=== PATIENT | male | born 1980 | race Caucasian/White ===

== ENCOUNTER 2017-02-21 10:25 | Emergency (ER) | payer OTHER ==
[2017-02-21 10:26] VITALS: BMI 50.0
[2017-02-21 11:02] VITALS: O2SAT 97
[2017-02-21 11:59] LABS: BASO # 0.1 K/uL (0.0-0.2); BASO % 1.1 % (0.0-2.0); EOS # 0.3 K/uL (0.0-0.7); HEMATOCRIT 43.5 % (35.0-51.0); LYMPH # 2.2 K/uL (1.0-4.3); LYMPH % 25.4 % (20.0-40.0); MEAN CELL VOLUME 80.4 fL (80.0-94.0); MEAN CORPUSCULAR HEMOGLOBIN 27.8 pg (27.0-31.0); MEAN CORPUSCULAR HGB CONC 34.5 g/dL (33.0-37.0); MEAN PLATELET VOLUME 8.8 fL (7.2-11.7); MONO # 0.6 K/uL (0.0-0.8); MONO % 7.3 % (0.0-10.0); RED CELL DISTRIBUTION WIDTH 13.7 % (11.5-14.5); WHITE BLOOD COUNT 8.7 K/uL (4.8-10.8)
--- NOTE | 2017-02-21 12:00 | C.PDOC ---
History Of Present Illness Patient is a 37 y/o male, whose PMHx includes HTN, presents to the ED for evaluation of LLQ abdominal pain since yesterday and headache since this morning. Denies having similar symptoms in the past. Otherwise, denies any chest pain, shortness of breath, dizziness, weakness, numbness, fever, chills, nausea, vomiting, diarrhea, changes in bowel habits, dysuria, hematuria, frequency, or flank pain. Time Seen by Provider: 02/21/17 11:42 Chief Complaint (Nursing): Abdominal Pain History Per: Patient History/Exam Limitations: no limitations Onset/Duration Of Symptoms: Days (1) Current Symptoms Are (Timing): Still Present Severity: Moderate Location Of Pain/Discomfort: LLQ Radiation Of Pain To:: None Quality Of Discomfort: "Pain" Associated Symptoms: denies: Fever, Chills, Nausea, Vomiting, Diarrhea, Loss Of Appetite, Back Pain, Chest Pain, Constipation, Urinary Symptoms Exacerbating Factors: None Alleviating Factors: None Recent travel outside of the [place]: No Additional History Per: Patient Past Medical History Reviewed: Historical Data, Nursing Documentation, Vital Signs Vital Signs: Last Vital Signs Temp 97.8 F 02/21/17 16:11 Pulse 76 02/21/17 16:11 Resp 18 02/21/17 16:11 BP 153/110 H 02/21/17 16:11 Pulse Ox 97 02/21/17 16:11 - Medical History PMH: Anxiety, Back Problems, Bipolar Disorder, HTN, Hypercholesterolemia Family History: States: Unknown Family Hx, Diabetes (Father) Denies: [place] (no family history of sudden or early cardiac disease) - Social History Hx Tobacco Use: No Hx Alcohol Use: No Hx Substance Use: No - Immunization History Hx Tetanus Toxoid Vaccination: Yes Hx Influenza Vaccination: Yes (05/2016) Hx Pneumococcal Vaccination: No Review Of Systems Except As Marked, All Systems Reviewed And Found Negative. Constitutional: Negative for: Fever, Chills Eyes: Negative for: Vision Change Cardiovascular: Negative for: Chest Pain, Palpitations Respiratory: Negative for: Shortness of Breath Gastrointestinal: Positive for: Abdominal Pain. Negative for: Nausea, Vomiting , Diarrhea, Constipation Genitourinary: Negative for: Dysuria, Frequency, Incontinence, Hematuria Musculoskeletal: Negative for: Back Pain Neurological: Positive for: Headache. Negative for: Weakness, Numbness, Dizziness Physical Exam - Physical Exam Appears: Non-toxic, No Acute Distress Skin: Normal Color, Warm, Dry Head: Atraumatic, Normacephalic Eye(s): bilateral: Normal Inspection Oral Mucosa: Moist Neck: Normal ROM, Supple Cardiovascular: Rhythm Regular, No Murmur Respiratory: Normal Breath Sounds, No Rales, No Rhonchi, No Wheezing Gastrointestinal/Abdominal: Soft, Tenderness (LLQ), No Distention, No Guarding, No Rebound Back: Normal Inspection Extremity: Bilateral: Atraumatic, Normal ROM Neurological/Psych: Oriented x3, Normal Speech, Normal Cognition, No Other (no focal deficits) ED Course And Treatment - Laboratory Results Result Diagrams: 02/21/17 11:51 02/21/17 11:51 O2 Sat by Pulse Oximetry: 97 (RA) Pulse Ox Interpretation: Normal - CT Scan/US Head CT Other Rad Studies (CT/US): Read By Radiologist, Radiology Report Reviewed CT/US Interpretation: PROCEDURE: CT HEAD WITHOUT CONTRAST. HISTORY: severe headache x 1 day. COMPARISON: Noncontrast head CT performed 08/08/15. TECHNIQUE: Axial computed tomography images were obtained through the head/ brain without intravenous contrast. Radiation dose: Total exam DLP = 981.84 mGy-cm. This CT exam was performed using one or more of the following dose reduction techniques: Automated exposure control, adjustment of the mA and/or kV according to patient size, and/or use of iterative reconstruction technique. FINDINGS: HEMORRHAGE: No intracranial hemorrhage. BRAIN: No mass effect or edema. Nonspecific 4 mm calcification re-identified, left frontal lobe parenchyma. No atrophy or chronic microvascular ischemic changes.Please note that MRI with diffusion imaging is more sensitive in the detection of acute ischemic event. VENTRICLES: Cavum septum pellucidum, anatomic variant. No hydrocephalus. CALVARIUM: Unremarkable. PARANASAL SINUSES: Unremarkable as visualized. No significant inflammatory changes. MASTOID AIR CELLS: Unremarkable as visualized. No inflammatory changes. OTHER FINDINGS: None. IMPRESSION: No acute intracranial pathology identified. Abd & pelvis CT Other Rad Studies (CT/US): Read By Radiologist, Radiology Report Reviewed CT/US Interpretation: PROCEDURE: CT Abdomen and Pelvis with oral and IV contrast. HISTORY: LLQ pain x 2 days. COMPARISON: None available. TECHNIQUE : Contiguous axial images of the abdomen and pelvis. Oral and IV contrast was administered. Coronal and Sagittal reformats generated and reviewed. Contrast dose: 100 cc Visipaque 320. Radiation dose: Total exam DLP = 1361.14 mGy-cm. This CT exam was performed using one or more of the following dose reduction techniques: Automated exposure control, adjustment of the mA and/or kV according to patient size, and/or use of iterative reconstruction technique. FINDINGS: Examination limited by habitus. LOWER THORAX: No visible consolidation, pleural effusion, or pneumothorax. Small hiatal hernia/distal esophageal wall thickening. LIVER: Hypoattenuation of the liver compatible with hepatic steatosis. GALLBLADDER AND BILE DUCTS: Unremarkable. PANCREAS: Unremarkable. SPLEEN: Unremarkable. ADRENALS: Unremarkable. KIDNEYS AND URETERS: The kidneys enhance symmetrically. No hydronephrosis or obstructing renal calculus. BLADDER: The urinary bladder appears unremarkable. REPRODUCTIVE: Unremarkable. APPENDIX: The appendix appears within normal limits of caliber. No secondary signs of acute appendicitis. BOWEL: The stomach is nondistended. The bowel loops appear within normal limits of caliber without evidence of intestinal obstruction. Moderate constipation. PERITONEUM: No significant free fluid. No definite free air. LYMPH NODES: No bulky lymphadenopathy identified. VASCULATURE: No aortic aneurysm. BONES: Degenerative changes. OTHER FINDINGS: Tiny fat containing umbilical hernia. IMPRESSION: Hepatic steatosis. Moderate constipation. Small hiatal hernia/ distal esophageal wall thickening. Progress Note: Blook work ordered and reviewed. Pt was given Tylenol. On re-eval , pt reports feeling better. Abdomen remains soft. Pt remains alert, oriented x3 , no focal deficits. Neurologically intact. Disposition - Disposition Disposition: HOME/ ROUTINE Disposition Time: 16:15 Condition: STABLE Additional Instructions: Follow up with your PMD within 1-2 days. Return to ED if feel worse. 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 - Scribe Statement The provider has reviewed the documentation as recorded by the Solisibe Kourtney Baxter All medical record entries made by the Scribe were at my direction and personally dictated by me. I have reviewed the chart and agree that the record accurately reflects my personal performance of the history, physical exam, medical decision making, and the department course for this patient. I have also personally directed, reviewed, and agree with the discharge instructions and disposition.
[2017-02-21 12:05] LABS: CHLORIDE 100 mmol/L (98-107)
[2017-02-21 12:06] LABS: POTASSIUM 3.7 mmol/L (3.6-5.2); SODIUM 138 mmol/L (132-148)
[2017-02-21 12:08] LABS: ALB/GLOB RATIO 1.1 (1.0-2.1); ALKALINE PHOSPHATASE 107 U/L (38-126); AST/SGOT 28 U/L (17-59); BILIRUBIN,TOTAL 0.7 mg/dL (0.2-1.3); BLOOD UREA NITROGEN 20 mg/dL (9-20); CARBON DIOXIDE 26 mmol/L (22-30); GFR AFRICAN-AMERICAN > 60; GLUCOSE,RANDOM 92 mg/dL (75-110); TOTAL PROTEIN 7.5 g/dL (6.3-8.3)
[2017-02-21 12:09] LABS: ALT/SGPT 40 U/L (21-72); CALCIUM 9.1 mg/dl (8.6-10.4)
[2017-02-21] MEDS ORDERED: Sodium Chloride 0.9% 1,000 ML IV STA (12:09)
[2017-02-21] MEDS ORDERED: Iohexol 240 (50 ml) PO STA (12:09)
[2017-02-21] MEDS ORDERED: Iohexol 240 (50 ml) ONE (12:27)
[2017-02-21] MEDS ORDERED: Sodium Chloride 0.9% 1,000 ML ONE (12:27)
[2017-02-21 12:36] LABS: AMYLASE 61 U/L (30-110)
[2017-02-21 12:55] LABS: RBC URINE 14 /hpf (0-3); URINE BILIRUBIN NEGATIVE (NEGATIVE); URINE COLOR Yellow (YELLOW); URINE GLUCOSE (UA) NORMAL (Normal); URINE KETONE NEGATIVE (NEGATIVE); URINE LEUKOCYTE ESTERASE NEG Leu/uL (Negative); URINE PROTEIN 2+ mg/dL (NEGATIVE); URINE UROBILINOGEN NORMAL mg/dL (0.2-1.0); WBC URINE < 1 /hpf (0-5)
[2017-02-21 13:04] LABS: URINE BLOOD 1+ (NEGATIVE)
[2017-02-21] MEDS ORDERED: Iodixanol 320 MG/ML 100 ML BOTTLE IV ONE (14:29)
--- NOTE | 2017-02-21 15:01 | CT ---
PROCEDURE: CT HEAD WITHOUT CONTRAST. HISTORY: severe headache x 1 day COMPARISON: Noncontrast head CT performed 08/08/15 TECHNIQUE: Axial computed tomography images were obtained through the head/brain without intravenous contrast. Radiation dose: Total exam DLP = 981.84 mGy-cm. This CT exam was performed using one or more of the following dose reduction techniques: Automated exposure control, adjustment of the mA and/or kV according to patient size, and/or use of iterative reconstruction technique. FINDINGS: HEMORRHAGE: No intracranial hemorrhage. BRAIN: No mass effect or edema. Nonspecific 4 mm calcification re-identified, left frontal lobe parenchyma. No atrophy or chronic microvascular ischemic changes.Please note that MRI with diffusion imaging is more sensitive in the detection of acute ischemic event. VENTRICLES: Cavum septum pellucidum, anatomic variant. No hydrocephalus. CALVARIUM: Unremarkable. PARANASAL SINUSES: Unremarkable as visualized. No significant inflammatory changes. MASTOID AIR CELLS: Unremarkable as visualized. No inflammatory changes. OTHER FINDINGS: None. IMPRESSION: No acute intracranial pathology identified.
--- NOTE | 2017-02-21 15:30 | CT ---
PROCEDURE: CT Abdomen and Pelvis with oral and IV contrast. HISTORY: LLQ pain x 2 days. COMPARISON: None available TECHNIQUE: Contiguous axial images of the abdomen and pelvis. Oral and IV contrast was administered. Coronal and Sagittal reformats generated and reviewed. Contrast dose: 100 cc Visipaque 320 Radiation dose: Total exam DLP = 1361.14 mGy-cm. This CT exam was performed using one or more of the following dose reduction techniques: Automated exposure control, adjustment of the mA and/or kV according to patient size, and/or use of iterative reconstruction technique. FINDINGS: Examination limited by habitus. LOWER THORAX: No visible consolidation, pleural effusion, or pneumothorax. Small hiatal hernia/distal esophageal wall thickening. LIVER: Hypoattenuation of the liver compatible with hepatic steatosis. GALLBLADDER AND BILE DUCTS: Unremarkable. PANCREAS: Unremarkable. SPLEEN: Unremarkable. ADRENALS: Unremarkable. KIDNEYS AND URETERS: The kidneys enhance symmetrically. No hydronephrosis or obstructing renal calculus. BLADDER: The urinary bladder appears unremarkable. REPRODUCTIVE: Unremarkable. APPENDIX: The appendix appears within normal limits of caliber. No secondary signs of acute appendicitis. BOWEL: The stomach is nondistended. The bowel loops appear within normal limits of caliber without evidence of intestinal obstruction. Moderate constipation. PERITONEUM: No significant free fluid. No definite free air. LYMPH NODES: No bulky lymphadenopathy identified. VASCULATURE: No aortic aneurysm. BONES: Degenerative changes. OTHER FINDINGS: Tiny fat containing umbilical hernia. IMPRESSION: Hepatic steatosis. Moderate constipation. Small hiatal hernia/ distal esophageal wall thickening.
[2017-02-21 16:11] VITALS: BP 153/110; PULSE 76; RESP 18; TEMP 97.8
== END 2017-02-21 16:23 | disposition home or self-care (01) ==
LOC: C.ER 10:25
DX: K59.00 Constipation, unspecified (principal); R51 Headache
CPT/HCPCS: 70450; 74177; 80053; 81001; 82150; 83690; 85025; 96360; 99284; J7040; Q9966; Q9967

== ENCOUNTER 2018-07-27 18:32 | Emergency (ER) | payer SELFPAY ==
[2018-07-27 18:33] VITALS: BMI 50.0
--- NOTE | 2018-07-27 20:00 | C.PDOC ---
History Of Present Illness 38 y/o male presents to the ED complaining of a sore throat and cough for 1 week. Patient states the pain is localized, points to lower portion of throat. Otherwise he denies any fevers, chills, vomiting, or diarrhea. No difficulty b reathing or chest tightness. Time Seen by Provider: 07/27/18 18:53 Chief Complaint (Nursing): ENT Problem History Per: Patient History/Exam Limitations: None Onset/Duration Of Symptoms: Days Current Symptoms Are (Timing): Still Present Quality (Mouth/Throat): Tenderness Symptoms Have Been: Continuous Past Medical History Reviewed: Historical Data, Nursing Documentation, Vital Signs Vital Signs: Last Vital Signs Temp 97.9 F 07/27/18 18:44 Pulse 86 07/27/18 18:44 Resp 16 07/27/18 18:44 BP 122/81 07/27/18 18:44 Pulse Ox 98 07/27/18 18:44 - Medical History PMH: Anxiety, Back Problems, Bipolar Disorder, HTN, Hypercholesterolemia Surgical History: No Surg Hx Family History: States: Diabetes (Father) Denies: [place] (no family history of sudden or early cardiac disease) - Social History Hx Tobacco Use: No Hx Alcohol Use: No Hx Substance Use: No - Immunization History Hx Tetanus Toxoid Vaccination: Yes Hx Influenza Vaccination: Yes (05/2016) Hx Pneumococcal Vaccination: No Review Of Systems Except As Marked, All Systems Reviewed And Found Negative. Constitutional: Negative for: Fever, Chills ENT: Positive for: Throat Pain Cardiovascular: Negative for: Chest Pain Respiratory: Positive for: Cough. Negative for: Shortness of Breath Gastrointestinal: Negative for: Vomiting, Abdominal Pain, Diarrhea Skin: Negative for: Rash Neurological: Negative for: Weakness, Headache Physical Exam - Physical Exam Appears: Well, Non-toxic, No Acute Distress Skin: Warm, Dry Head: Atraumatic, Normacephalic Eye(s): bilateral: Normal Inspection, PERRL, EOMI Oral Mucosa: Moist Throat: Erythema (mild), No Exudate, No Drooling, No Mass Neck: Normal ROM, Supple Chest: Symmetrical Cardiovascular: Rhythm Regular, No Murmur Respiratory: Normal Breath Sounds, No Rales, No Rhonchi, No Wheezing Extremity: Bilateral: Atraumatic, Normal Color And Temperature Neurological/Psych: Oriented x3, Normal Speech, Normal Cognition, Normal Motor, Normal Sensation ED Course And Treatment - Laboratory Results Result Diagrams: 07/27/18 20:41 07/27/18 20:41 O2 Sat by Pulse Oximetry: 98 (RA) Pulse Ox Interpretation: Normal - Radiology CXR: Interpreted by Co CXR Interpretation: Yes: No Acute Disease - Other Rad soft tissue/neck X-Ray: Read By Radiologist Interpretation: Name:ELEANOR MORENO Exam Date:Jul 27, 2018 7:34:20 PM EST. Modality Type:CR\AZ. Description:CR - CERVICAL SPINE 2 OR 3 VIEWS. Gender:M Laterality:Not applicable. :81 Referring Physician:Gladis Patel ([place]). EXAM: CR Soft Tissue Neck, 3 View. CLINICAL HISTORY: SORE THROAT. R/O EPIGLOTITIS. THIS IS AN AP/LATERAL SOFT TISSUE NECK STUDY. COMPARISON: None provided. FINDINGS: SOFT TISSUES: There is retropharyngeal soft tissue swelling noted at the level of C3 which measured 1.3 cm in AP dimension. Some literature reports that this measurement should not be greater than 7.0 mm. Consequently, retropharyngeal soft tissue inflammatory thickening is suspected. No subcutaneous emphysema is detected. No radiopaque foreign bodies identified. EPIGLOTTIS: No epiglottic thickening. BONES: No acute osseous abnormality identified. Marginal osteophytic spurring arises from the C4, C5, C6 vertebrae. IMPRESSION: 1. Suspected soft tissue swelling of the retropharyngeal soft tissues at the level of C3 as described above. . Electronically signed on Jul 27, 2018 8:28:32 PM EST by: Eron Ornelas M.D., SISSY Certified By ABR & CBCCT. Fellowship Trained MRI and CT Specialist - CT Scan/US ct neck Other Rad Studies (CT/US): Read By Radiologist, Radiology Report Reviewed CT/US Interpretation: EXAM: CT Neck with Intravenous Contrast. CLINICAL HISTORY: Throat pain. r/o mass. TECHNIQUE: Axial computed tomography images of the neck with intravenous contrast. Sagittal and coronal reformatted images were generated. 0.00 mGy-cm. CONTRAST: With; visipaque 320 100cc is used. sa. COMPARISON: Soft tissue neck examination performed earlier the same date. FINDINGS: PHARYNX: Unremarkable appearance of the nasopharynx, oropharyx, and hypopharynx. No pharyngeal mucosal based mass lesions. No peritonsillar abscess formation. LARYNX: The larynx is unremarkable. The epiglottis appears normal. RETROPHARYNGEAL SPACE: No definite retropharyngeal soft tissue swelling or gas. SALIVARY GLANDS: No salivary gland abnormality evident. Unremarkable appearance of the parotid, submandibular, and sublingual glands. LYMPH NODES: No significant lymphadenopathy. THYROID: The thyroid gland is unremarkable. No nodule is evident. BONES: No acute osseous abnormality. No aggressive appearing osseous lesion. IMPRESSION: 1. Unremarkable CT neck with IV contrast. Progress Note: Ordered CXR as well as soft tissue/neck x-ray in order to rule out epiglottitis. Disposition - Disposition Referrals: FAMILY PROVIDER,NO [Primary Care Provider] - Disposition: HOME/ ROUTINE Disposition Time: 23:38 Condition: STABLE Additional Instructions: Follow up with PMD/clinic within 1-2 days. Return to ED if feel worse. Prescriptions: Amoxicillin [Amoxil 500 mg Cap] 500 mg PO Q8 #30 cap Potassium Chloride [K-Dur 20 mEq ER Tab] 20 meq PO DAILY #10 tab Ibuprofen [Motrin Tab] 600 mg PO Q8 #30 tab Instructions: Hypokalemia (DC), Sore Throat, Adult (DC) Forms: [employer] (Pakistani) - Clinical Impression Clinical Impression: Hypokalemia, Throat pain in adult - PA / DIFFERENTIAL TESTER / Resident Statement MD/DO has reviewed & agrees with the documentation as recorded. - Scribe Statement The provider has reviewed the documentation as recorded by the Linda Mandel All medical record entries made by the Linda were at my direction and personally dictated by me. I have reviewed the chart and agree that the record accurately reflects my personal performance of the history, physical exam, medical decision making, and the department course for this patient. I have also personally directed, reviewed, and agree with the discharge instructions and disposition.
[2018-07-27 20:47] LABS: BASO % 0.8 % (0.0-2.0); EOS # 0.2 K/uL (0.0-0.7); EOS % 3.8 % (0.0-4.0); HEMOGLOBIN 14.2 g/dL (12.0-18.0); LYMPH % 35.6 % (20.0-40.0); MEAN CELL VOLUME 80.4 fL (80.0-94.0); MEAN CORPUSCULAR HEMOGLOBIN 28.4 pg (27.0-31.0); MEAN CORPUSCULAR HGB CONC 35.3 g/dL (33.0-37.0); MEAN PLATELET VOLUME 8.2 fL (7.2-11.7); MONO # 0.5 K/uL (0.0-0.8); MONO % 9.5 % (0.0-10.0); NEUT # 2.8 K/uL (1.8-7.0); NEUT % 50.3 % (50.0-75.0); NRBC % 0.1 % (0.0-2.0); RBC 4.99 Mil/uL (4.40-5.90); RED CELL DISTRIBUTION WIDTH 13.6 % (11.5-14.5); WHITE BLOOD COUNT 5.6 K/uL (4.8-10.8)
[2018-07-27 21:02] LABS: ALB/GLOB RATIO 1.5 (1.0-2.1); ALBUMIN 4.9 g/dL (3.5-5.0); ALT/SGPT 34 U/L (21-72); AST/SGOT 35 U/L (17-59); BLOOD UREA NITROGEN 32 mg/dL (9-20); CALCIUM 9.7 mg/dl (8.6-10.4); GFR NON-AFRICAN AMERICAN > 60
[2018-07-27] MEDS ORDERED: Potassium Chloride 20 mEq ER Tab PO STA (21:03)
[2018-07-27] MEDS ORDERED: Sodium Chloride 0.9% 1,000 ML IV STA (21:03)
[2018-07-27] MEDS ORDERED: Sodium Chloride 0.9% 1,000 ML ONE (21:09)
[2018-07-27] MEDS ORDERED: Potassium Chloride 20 mEq/15 ml LIQ UD ONE (21:09)
[2018-07-27] MEDS ORDERED: Iodixanol 320 MG/ML 100 ML BOTTLE IV ONE (21:27)
[2018-07-27 23:36] VITALS: BP 117/80; PULSE 69; RESP 18; TEMP 97.3
[2018-07-27 23:41] VITALS: O2SAT 98
[2018-07-27] MEDS ORDERED: Amoxicillin 250 mg/5 ml Susp (100 ml) ONE (23:44)
--- NOTE | 2018-07-28 12:05 | RAD ---
Date of service: 07/27/2018 HISTORY: cough COMPARISON: Comparison chest 12/10/2014 TECHNIQUE: Chest PA and lateral FINDINGS: LUNGS: No active pulmonary disease. PLEURA: No significant pleural effusion identified. No pneumothorax apparent. CARDIOVASCULAR: No aortic atherosclerotic calcification present. Normal cardiac size. No pulmonary vascular congestion. OSSEOUS STRUCTURES: Minor multilevel degenerative spondylosis of the thoracic spine. VISUALIZED UPPER ABDOMEN: Normal. OTHER FINDINGS: None. IMPRESSION: No active disease.
--- NOTE | 2018-07-28 12:08 | RAD ---
Date of service: 07/27/2018 HISTORY: Sore throat COMPARISON: No prior however this study was read in conjunction with subsequent CT scan neck performed approximately 1.5 hr later FINDINGS: The prevertebral soft tissues unremarkable. Free margin of the epiglottis exhibits normal size without evidence to suggest epiglottitis.. Mild degenerative spondylosis most notably affecting the C5-C6, through the C3-C4 levels in decreasing order of severity. IMPRESSION: Unremarkable soft tissue neck.
--- NOTE | 2018-07-28 13:40 | CT ---
Date of service: 07/27/2018 PROCEDURE: CT NECK WITH CONTRAST HISTORY: Throat pain, abnormal xray COMPARISON: Made with soft tissue neck obtained earlier same day. TECHNIQUE: CT of the neck with intravenous contrast. Coronal and sagittal reformats generated. Intravenous contrast dose: Radiation dose: Total exam DLP = 650.23 mGy-cm. This CT exam was performed using one or more of the following dose reduction techniques: Automated exposure control, adjustment of the mA and/or kV according to patient size, and/or use of iterative reconstruction technique. FINDINGS: NASOPHARYNX: Unremarkable. SUPRAHYOID NECK: Unremarkable oropharynx, oral cavity, parapharyngeal space and retropharyngeal space. Free margin of the epiglottis unremarkable INFRAHYOID NECK: There is minor asymmetry of the pyriform sinuses left-side of which is smaller than the right-side. Findings could be secondary to residual and or retained secretion or anatomic variation however possibility of a mucosal lesion in the region of the left pyriform sinus or arising from the left aryepiglottic fold cannot be excluded. Follow-up the direct visualization recommended. Vocal cords intact. MASS: As above.. GLANDS: Parotid and submandibular glands unremarkable. Normal size thyroid gland, without nodule. LYMPH NODES: Multiple small nonspecific bilateral cervical lymph nodes none of which appear pathologically enlarged. CERVICAL SPINE: No fracture or focal lesion. VASCULAR STRUCTURES: Unremarkable. OTHER FINDINGS: Lung apices are clear. IMPRESSION: No evidence of enlarged palatine tonsils or peritonsillar abscess. Mild asymmetry of the pyriform sinus left-sided which is smaller than the right side.. Findings could be secondary to some residual and/or retained secretion and/or anatomic variation. The possibility of a soft tissue mass in the the arising from the pyriform sinus or aryepiglottic fold cannot be completely excluded. Recommend follow-up direct visualization for further evaluation. ENT consultation may be prudent. Note this report was placed in PA review folder follow up.
== END 2018-07-27 23:49 | disposition home or self-care (01) ==
LOC: C.ER 18:32
DX: E87.6 Hypokalemia (principal); R07.0 Pain in throat; E78.00 Pure hypercholesterolemia, unspecified; I10 Essential (primary) hypertension
CPT/HCPCS: 70360; 70491; 71046; 80053; 85025; 96360; 99283; J7030; Q9967

== ENCOUNTER 2018-09-26 21:34 | Observation (INO) | payer OTHER ==
[2018-09-26 21:34] VITALS: BMI 50.0
[2018-09-26 22:37] LABS: BASO # 0.1 K/uL (0.0-0.2); BASO % 0.8 % (0.0-2.0); EOS # 0.3 K/uL (0.0-0.7); HEMOGLOBIN 12.9 g/dL (12.0-18.0); LYMPH # 2.5 K/uL (1.0-4.3); LYMPH % 38.7 % (20.0-40.0); MEAN CORPUSCULAR HEMOGLOBIN 28.7 pg (27.0-31.0); MEAN CORPUSCULAR HGB CONC 34.2 g/dL (33.0-37.0); MEAN PLATELET VOLUME 8.9 fL (7.2-11.7); MONO # 0.6 K/uL (0.0-0.8); NEUT % 47.5 % (50.0-75.0); NRBC % 0.1 % (0.0-2.0); RBC 4.48 Mil/uL (4.40-5.90); WHITE BLOOD COUNT 6.4 K/uL (4.8-10.8)
[2018-09-26 22:43] LABS: INR 1.1; PROTHROMBIN TIME 11.8 SECONDS (9.7-12.2)
[2018-09-26 22:53] LABS: ALB/GLOB RATIO 1.5 (1.0-2.1); ALBUMIN 4.2 g/dL (3.5-5.0); ALT/SGPT 23 U/L (21-72); AST/SGOT 34 U/L (17-59); BLOOD UREA NITROGEN 26 mg/dL (9-20); CALCIUM 9.5 mg/dl (8.6-10.4); GFR NON-AFRICAN AMERICAN > 60
[2018-09-26 23:04] LABS: B-TYPE NATRIURETIC PEPTIDE 147 pg/mL (0-450); CK-MB 4.33 ng/mL (0.0-3.38)
[2018-09-26 23:14] LABS: SQUAMOUS EPITHIAL < 1 /hpf (0-5); URINE BILIRUBIN NEGATIVE (NEGATIVE); URINE BLOOD NEGATIVE (NEGATIVE); URINE CLARITY Clear (Clear); URINE COLOR Yellow (YELLOW); URINE GLUCOSE (UA) NORMAL (Normal); URINE LEUKOCYTE ESTERASE NEG Leu/uL (Negative); URINE PROTEIN NEGATIVE (NEGATIVE); URINE UROBILINOGEN NORMAL mg/dL (0.2-1.0)
[2018-09-26 23:28] LABS: BARBITURATES, UR NEGATIVE (NEGATIVE); BENZODIAZEPINES, UR NEGATIVE (NEGATIVE); OPIATES, UR NEGATIVE (NEGATIVE); PHENCYCLIDINE, UR NEGATIVE (NEGATIVE)
--- NOTE | 2018-09-26 23:34 | C.PDOC ---
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 Patient states the pain radiates to the left jaw and left arm and is associated with mild SOB. 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 Denies cough, fever, abdominal pain, leg edema, or palpitations. Time Seen by Provider: 09/26/18 21:55 Chief Complaint (Nursing): Chest Pain History Per: Patient History/Exam Limitations: no limitations Onset/Duration Of Symptoms: Hrs, Intermittent Episodes Current Symptoms Are (Timing): Still Present Quality: Pressure Associated Symptoms: Dyspnea (Mild) Exacerbating Factors: None Alleviating Factors: None Recent travel outside of the [place]: No Past Medical History Reviewed: Historical Data, Nursing Documentation, Vital Signs Vital Signs: Last Vital Signs Temp 98.0 F 09/26/18 21:55 Pulse 74 09/26/18 21:55 Resp 20 09/26/18 21:55 BP 108/67 09/26/18 21:55 Pulse Ox 99 09/26/18 21:55 - Medical History PMH: Anxiety, Back Problems, Bipolar Disorder, HTN, Hypercholesterolemia Family History: States: Diabetes (Father) Denies: HI (no family history of sudden or early cardiac disease) - Social History Hx Tobacco Use: No Hx Alcohol Use: No Hx Substance Use: No - Immunization History Hx Tetanus Toxoid Vaccination: Yes Hx Influenza Vaccination: Yes (05/2016) Hx Pneumococcal Vaccination: No Review Of Systems Except As Marked, All Systems Reviewed And Found Negative. Cardiovascular: Positive for: Chest Pain Respiratory: Positive for: Shortness of Breath Physical Exam - Physical Exam Appears: Non-toxic, Other (Comfortable, speaking in complete sentences) Skin: Normal Color, Warm Head: Atraumatic, Normacephalic Eye(s): bilateral: Normal Inspection Oral Mucosa: Moist Neck: Normal, Supple Chest: Symmetrical Cardiovascular: Rhythm Regular Respiratory: Normal Breath Sounds, No Rales, No Rhonchi, No Wheezing Gastrointestinal/Abdominal: Soft, No Tenderness Extremity: No Pedal Edema Neurological/Psych: Oriented x3, Normal Speech ED Course And Treatment - Laboratory Results Result Diagrams: 09/26/18 22:27 09/26/18 22:27 Lab Results: PT 11.8 SECONDS (9.7-12.2) 09/26/18 22: INR 1.1 09/26/18: APTT 35 SECONDS (21-34) H 09/26/18 22: Troponin I < 0.0120 ng/mL (0.00-0.120) 09/26/18: NT-Pro-B Natriuret Pep 147 pg/mL (0-450) 09/26/18: Total Bilirubin 0.4 mg/dL (0.2-1.3) 09/26/18 22: AST 34 U/L (17-59) 09/26/18: ALT 23 U/L (21-72) 09/26/18: Alkaline Phosphatase 100 U/L (38-126) 09/26/18 22: Total Protein 7.0 g/dL (6.3-8.3) 09/26/18 22: Albumin 4.2 g/dL (3.5-5.0) 09/26/18: Globulin 2.8 gm/dL (2.2-3.9) 09/26/18: Albumin/Globulin Ratio 1.5 (1.0-2.1) 09/26/18: Urine Color Yellow (YELLOW) 09/26/18 23:09 Urine Clarity Clear (Clear) 09/26/18 23: Urine pH 6.0 (5.0-8.0) 09/26/18 23:09 Ur Specific [place] 1.020 (1.003-1.030) 09/26/18 23:09 Urine Protein Negative mg/dL (NEGATIVE) 09/26/18 23:09 Urine Glucose (UA) Normal mg/dL (Normal) 09/26/18 23:09 Urine Ketones Negative mg/dL (NEGATIVE) 09/26/18 23:09 Urine Blood Negative (NEGATIVE) 09/26/18 23:09 Urine Nitrate Negative (NEGATIVE) 09/26/18 23:09 Urine Bilirubin Negative (NEGATIVE) 09/26/18 23:09 Urine Urobilinogen Normal mg/dL (0.2-1.0) 09/26/18 23:09 Ur Leukocyte Esterase Neg Dana/uL (Negative) 09/26/18 23:09 Urine WBC (Auto) < 1 /hpf (0-5) 09/26/18 23:09 Urine RBC (Auto) 2 /hpf (0-3) 09/26/18 23:09 Ur Squamous Epith Cells < 1 /hpf (0-5) 09/26/18 23:09 ECG: Interpreted By Me, Viewed By Me ECG Rhythm: Sinus Rhythm ECG Interpretation: Normal Interpretation Of ECG: Normal axis, no acute ST/T wave changes. Rate From EC O2 Sat by Pulse Oximetry: 99 (Room air) Pulse Ox Interpretation: Normal Progress Note: Due to cardiac risk factors, plan is to admit for observation. Disposition - Disposition Forms: [facility] (N[place]ien) - Scribe Statement The provider has reviewed the documentation as recorded by the Scribe Gene Toeldo All medical record entries made by the Scribe were at my direction and personally dictated by me. I have reviewed the chart and agree that the record accurately reflects my personal performance of the history, physical exam, medical decision making, and the department course for this patient. I have also personally directed, reviewed, and agree with the discharge instructions and disposition.
--- NOTE | 2018-09-27 01:18 | CP.PCM.HP ---
<Christopher Ellsworth M - Last Filed: 09/27/18 05:19> History of Present Illness - History of Present Illness History of Present Illness: H&P for Dr. Walter. 38 M w/ PMhx of HTN and HLD presents to ED for 1 day worsening L sided head pain radiating to left arm. 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 Each episode lasted approximately 10 minutes and self resolved. During episodes, patient states he just had pain in left arm, no numbness/ tingling reported. Patient states each time of the pain he was working. Patient reports returning to work for the first time in 3 months earlier this week. Patient denies headaches, chest pain, SOB, cough, abdominal pain, nausea, vomiting, dysuria, hematuria. Patient denies recent travel, illness/sick contacts. PMD: Alok Li PMHx: HTN, HLD, BPH Meds: See EMR PSHx: Umbilical hernia repair Allergies: NKDA SHx: Denies smoking, ETOH, illicit drug use FHx: Mother -, breast cancer; Father- living, 61, HTN, DM Present on Admission - Present on Admission Any Indicators Present on Admission: No History of DVT/PE: No History of Uncontrolled Diabetes: No Urinary Catheter: No Decubitus Ulcer Present: No Review of Systems - Constitutional Constitutional: absent: Chills, Fever - EENT Eyes: absent: Blurred Vision, Change in Vision Ears: absent: Ear Discharge Nose/Mouth/Throat: absent: Nasal Congestion, Nasal Trauma - Cardiovascular Cardiovascular: absent: Chest Pain, Chest Pain at Rest, Dyspnea - Respiratory Respiratory: absent: Cough, Dyspnea - Genitourinary Genitourinary: absent: Change in Urinary Stream, Difficulty Urinating - Musculoskeletal Musculoskeletal: absent: Arthralgias, Joint Swelling - Neurological Neurological: absent: Dizziness, Numbness, Headaches - Psychiatric Psychiatric: absent: Confusion, Depression - Endocrine Endocrine: absent: Change in Body Appearance Past Patient History - Infectious Disease Hx of Infectious Diseases: None - Past Social History Smoking Status: Never Smoked - CARDIAC Hx Hypercholesterolemia: Yes Hx Hypertension: Yes - PSYCHIATRIC Hx Anxiety: Yes Hx Bipolar Disorder: Yes Hx Substance Use: No - SURGICAL HISTORY Hx Surgeries: No - ANESTHESIA Hx Anesthesia: No Meds Allergies/Adverse Reactions: Allergies Allergy/AdvReac Type Severity Reaction Status Date / Time No Known Allergies Allergy Verified 09/26/18 21:57 Physical Exam - Constitutional Appears: Non-toxic, No Acute Distress - Head Exam Head Exam: ATRAUMATIC, NORMAL INSPECTION, NORMOCEPHALIC - Eye Exam Eye Exam: EOMI, Normal appearance Pupil Exam: NORMAL ACCOMODATION - ENT Exam ENT Exam: Mucous Membranes Moist - Neck Exam Neck exam: Positive for: Full Rom, Tenderness Additional comments: tenderness on L cervical region - Respiratory Exam Respiratory Exam: Clear to Auscultation Bilateral, NORMAL BREATHING PATTERN. absent: Rales, Rhonchi, Wheezes - Cardiovascular Exam Cardiovascular Exam: +S1, +S2. absent: Systolic Murmur - GI/Abdominal Exam GI & Abdominal Exam: Normal Bowel Sounds, Soft. absent: Rigid - Extremities Exam Extremities exam: Positive for: full ROM, normal inspection. Negative for: calf tenderness, pedal edema - Back Exam Back exam: NORMAL INSPECTION. absent: CVA tenderness (L), CVA tenderness (R) - Neurological Exam Neurological exam: Alert, Oriented x3 - Psychiatric Exam Psychiatric exam: Normal Affect, Normal Mood - Skin Skin Exam: Dry, Intact, Normal Color, Warm Results - Vital Signs Recent Vital Signs: Last Vital Signs Temp 98.0 F 09/26/18 21:55 Pulse 80 09/26/18 23:00 Resp 14 09/26/18 23:00 BP 110/70 09/26/18 23:00 Pulse Ox 99 09/26/18 23:41 - Labs Result Diagrams: 09/26/18 22:27 09/26/18 22:27 Labs: Laboratory Results - last 24 hr 09/26/18 09/26/18 09/26/18 22:27 22:27 22:27 WBC 6.4 RBC 4.48 Hgb 12.9 Hct 37.6 MCV 84.0 D MCH 28.7 MCHC 34.2 RDW 14.0 Plt Count 237 MPV 8.9 Neut % (Auto) 47.5 L Lymph % (Auto) 38.7 [place] % (Auto) 9.0 Eos % (Auto) 4.0 Baso % (Auto) 0.8 Neut # (Auto) 3.0 Lymph # (Auto) 2.5 [place] # (Auto) 0.6 Eos # (Auto) 0.3 Baso # (Auto) 0.1 PT 11.8 INR 1.1 APTT 35 H Sodium 139 Potassium 4.2 Chloride 103 Carbon Dioxide 29 Anion Gap 12 BUN 26 H Creatinine 0.9 Est GFR ( Amer) > 60 Est GFR (Non-Af Amer) > 60 Random Glucose 98 Calcium 9.5 Total Bilirubin 0.4 AST 34 ALT 23 Alkaline Phosphatase 100 Total Creatine Kinase 281 H CK-MB (Mass) 4.33 H Troponin I < 0.0120 NT-Pro-B Natriuret Pep 147 Total Protein 7.0 Albumin 4.2 Globulin 2.8 Albumin/Globulin Ratio 1.5 Urine Color Urine Clarity Urine pH Ur Specific [place] Urine Protein Urine Glucose (UA) Urine Ketones Urine Blood Urine Nitrate Urine Bilirubin Urine Urobilinogen Ur Leukocyte Esterase Urine WBC (Auto) Urine RBC (Auto) Ur Squamous Epith Cells Urine Opiates Screen Urine Methadone Screen Ur Barbiturates Screen Ur Phencyclidine Scrn Ur Amphetamines Screen U Benzodiazepines Scrn U Oth Cocaine Metabols U Cannabinoids Screen 09/26/18 09/26/18 23:09 23:09 WBC RBC Hgb Hct MCV MCH MCHC RDW Plt Count MPV Neut % (Auto) Lymph % (Auto) [place] % (Auto) Eos % (Auto) Baso % (Auto) Neut # (Auto) Lymph # (Auto) [place] # (Auto) Eos # (Auto) Baso # (Auto) PT INR APTT Sodium Potassium Chloride Carbon Dioxide Anion Gap BUN Creatinine Est GFR ( Amer) Est GFR (Non-Af Amer) Random Glucose Calcium Total Bilirubin AST ALT Alkaline Phosphatase Total Creatine Kinase CK-MB (Mass) Troponin I NT-Pro-B Natriuret Pep Total Protein Albumin Globulin Albumin/Globulin Ratio Urine Color Yellow Urine Clarity Clear Urine pH 6.0 Ur Specific [place] 1.020 Urine Protein Negative Urine Glucose (UA) Normal Urine Ketones Negative Urine Blood Negative Urine Nitrate Negative Urine Bilirubin Negative Urine Urobilinogen Normal Ur Leukocyte Esterase Neg Urine WBC (Auto) < 1 Urine RBC (Auto) 2 Ur Squamous Epith Cells < 1 Urine Opiates Screen Negative Urine Methadone Screen Negative Ur Barbiturates Screen Negative Ur Phencyclidine Scrn Negative Ur Amphetamines Screen Negative U Benzodiazepines Scrn Negative U Oth Cocaine Metabols Negative U Cannabinoids Screen Negative Assessment & Plan - Assessment and Plan (Free Text) Assessment: 38 M w/ PMhx of HTN, HLD, BPH presents to ED w/ neck pain radiating to arm. Plan: Likely Cervical Radiculopathy - Will R/o ACS w/ additional MELINA - initial troponin negative - EKG: NSR w/ HR @ 62 - RICE History of Hypertension - c/w home medication lisinopril 10 mg Po daily, amlodipine 5 mg PO daily History of BPH - c/w home medication dutasteride 0.5 mg PO daily History of Hyperlipidema - c/w home medication gemifibrozil 600 mg PO BID PPx - DVT: pt is ambulatory, VTE not required <Ted Walter P - Last Filed: 09/27/18 07:56> Results - Vital Signs Recent Vital Signs: Last Vital Signs Temp 97.6 F 09/27/18 05:46 Pulse 59 L 09/27/18 05:46 Resp 18 09/27/18 05:46 BP 111/70 09/27/18 05:46 Pulse Ox 99 09/27/18 05:46 - Labs Result Diagrams: 09/27/18 07:38 09/26/18 22:27 Labs: Laboratory Results - last 24 hr 09/26/18 09/26/18 09/26/18 22:27 22:27 22:27 WBC 6.4 RBC 4.48 Hgb 12.9 Hct 37.6 MCV 84.0 D MCH 28.7 MCHC 34.2 RDW 14.0 Plt Count 237 MPV 8.9 Neut % (Auto) 47.5 L Lymph % (Auto) 38.7 [place] % (Auto) 9.0 Eos % (Auto) 4.0 Baso % (Auto) 0.8 Neut # (Auto) 3.0 Lymph # (Auto) 2.5 [place] # (Auto) 0.6 Eos # (Auto) 0.3 Baso # (Auto) 0.1 PT 11.8 INR 1.1 APTT 35 H Sodium 139 Potassium 4.2 Chloride 103 Carbon Dioxide 29 Anion Gap 12 BUN 26 H Creatinine 0.9 Est GFR ( Amer) > 60 Est GFR (Non-Af Amer) > 60 Random Glucose 98 Calcium 9.5 Total Bilirubin 0.4 AST 34 ALT 23 Alkaline Phosphatase 100 Total Creatine Kinase 281 H CK-MB (Mass) 4.33 H Troponin I < 0.0120 NT-Pro-B Natriuret Pep 147 Total Protein 7.0 Albumin 4.2 Globulin 2.8 Albumin/Globulin Ratio 1.5 Urine Color Urine Clarity Urine pH Ur Specific [place] Urine Protein Urine Glucose (UA) Urine Ketones Urine Blood Urine Nitrate Urine Bilirubin Urine Urobilinogen Ur Leukocyte Esterase Urine WBC (Auto) Urine RBC (Auto) Ur Squamous Epith Cells Urine Opiates Screen Urine Methadone Screen Ur Barbiturates Screen Ur Phencyclidine Scrn Ur Amphetamines Screen U Benzodiazepines Scrn U Oth Cocaine Metabols U Cannabinoids Screen 09/26/18 09/26/18 09/27/18 23:09 23:09 07:38 WBC 5.3 RBC 4.40 Hgb 12.9 Hct 37.1 MCV 84.4 MCH 29.3 MCHC 34.7 RDW 13.8 Plt Count 232 MPV 8.7 Neut % (Auto) 52.7 Lymph % (Auto) 31.8 [place] % (Auto) 11.0 H Eos % (Auto) 3.8 Baso % (Auto) 0.7 Neut # (Auto) 2.8 Lymph # (Auto) 1.7 [place] # (Auto) 0.6 Eos # (Auto) 0.2 Baso # (Auto) 0.0 PT INR APTT Sodium Potassium Chloride Carbon Dioxide Anion Gap BUN Creatinine Est GFR ( Amer) Est GFR (Non-Af Amer) Random Glucose Calcium Total Bilirubin AST ALT Alkaline Phosphatase Total Creatine Kinase CK-MB (Mass) Troponin I NT-Pro-B Natriuret Pep Total Protein Albumin Globulin Albumin/Globulin Ratio Urine Color Yellow Urine Clarity Clear Urine pH 6.0 Ur Specific [place] 1.020 Urine Protein Negative Urine Glucose (UA) Normal Urine Ketones Negative Urine Blood Negative Urine Nitrate Negative Urine Bilirubin Negative Urine Urobilinogen Normal Ur Leukocyte Esterase Neg Urine WBC (Auto) < 1 Urine RBC (Auto) 2 Ur Squamous Epith Cells < 1 Urine Opiates Screen Negative Urine Methadone Screen Negative Ur Barbiturates Screen Negative Ur Phencyclidine Scrn Negative Ur Amphetamines Screen Negative U Benzodiazepines Scrn Negative U Oth Cocaine Metabols Negative U Cannabinoids Screen Negative Attending/Attestation - Attestation I have personally seen and examined this patient.: Yes I have fully participated in the care of the patient.: Yes I have reviewed all pertinent clinical information: Yes Notes (Text): 09/27/18 07:53 Atypical cp non exertional, reproducible with turning face and neck to the left side, 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
[2018-09-27 07:49] LABS: BASO % 0.7 % (0.0-2.0); EOS # 0.2 K/uL (0.0-0.7); EOS % 3.8 % (0.0-4.0); HEMOGLOBIN 12.9 g/dL (12.0-18.0); LYMPH # 1.7 K/uL (1.0-4.3); LYMPH % 31.8 % (20.0-40.0); MEAN CELL VOLUME 84.4 fL (80.0-94.0); MEAN CORPUSCULAR HEMOGLOBIN 29.3 pg (27.0-31.0); MEAN CORPUSCULAR HGB CONC 34.7 g/dL (33.0-37.0); MEAN PLATELET VOLUME 8.7 fL (7.2-11.7); MONO # 0.6 K/uL (0.0-0.8); NEUT # 2.8 K/uL (1.8-7.0); NEUT % 52.7 % (50.0-75.0); NRBC % 0.1 % (0.0-2.0); RBC 4.4 Mil/uL (4.40-5.90); RED CELL DISTRIBUTION WIDTH 13.8 % (11.5-14.5); WHITE BLOOD COUNT 5.3 K/uL (4.8-10.8)
[2018-09-27 08:31] LABS: ALB/GLOB RATIO 1.6 (1.0-2.1); ALBUMIN 4.2 g/dL (3.5-5.0); ALT/SGPT 23 U/L (21-72); AST/SGOT 42 U/L (17-59); BLOOD UREA NITROGEN 21 mg/dL (9-20); CALCIUM 9.2 mg/dl (8.6-10.4); GFR NON-AFRICAN AMERICAN > 60
[2018-09-27 08:34] LABS: CK-MB 3.13 ng/mL (0.0-3.38)
[2018-09-27 08:45] VITALS: RESP 20; TEMP 98.1; O2SAT 98
--- NOTE | 2018-09-27 10:21 | RAD ---
Date of service: 09/26/2018 PROCEDURE: CHEST RADIOGRAPH, 1 VIEW HISTORY: Chest pain and shortness of breath COMPARISON: 07/27/2018. FINDINGS: LUNGS: The lungs are well inflated and clear. PLEURA: No pneumothorax or pleural effusion. CARDIOVASCULAR: The heart is normal in size. No aortic atherosclerotic calcifications present. OSSEOUS STRUCTURES: Within normal limits for the patient's age. VISUALIZED UPPER ABDOMEN: Normal. OTHER FINDINGS: None. IMPRESSION: No active pulmonary disease.
--- NOTE | 2018-09-27 11:40 | CP.PCM.DIS ---
Provider - Provider Date of Admission: 09/26/18 23:56 Attending physician: Ted Walter MD Time Spent in preparation of Discharge (in minutes): 35 Diagnosis - Discharge Diagnosis (1) History of hypertension Status: Chronic (2) Atypical chest pain Status: Acute (3) Cervical radiculopathy Status: Chronic Hospital Course - Lab Results Lab Results: Most Recent Lab Values WBC 5.3 K/uL (4.8-10.8) 09/27/18 07:38 RBC 4.40 Mil/uL (4.40-5.90) 09/27/18 07:38 Hgb 12.9 g/dL (12.0-18.0) 09/27/18 07:38 Hct 37.1 % (35.0-51.0) 09/27/18 07:38 MCV 84.4 fL (80.0-94.0) 09/27/18 07:38 MCH 29.3 pg (27.0-31.0) 09/27/18 07:38 MCHC 34.7 g/dL (33.0-37.0) 09/27/18 07:38 RDW 13.8 % (11.5-14.5) 09/27/18 07:38 Plt Count 232 K/uL (130-400) 09/27/18 07:38 MPV 8.7 fL (7.2-11.7) 09/27/18 07:38 Neut % (Auto) 52.7 % (50.0-75.0) 09/27/18 07:38 Lymph % (Auto) 31.8 % (20.0-40.0) 09/27/18 07:38 [place] % (Auto) 11.0 % (0.0-10.0) H 09/27/18 07:38 Eos % (Auto) 3.8 % (0.0-4.0) 09/27/18 07:38 Baso % (Auto) 0.7 % (0.0-2.0) 09/27/18 07:38 Neut # (Auto) 2.8 K/uL (1.8-7.0) 09/27/18 07:38 Lymph # (Auto) 1.7 K/uL (1.0-4.3) 09/27/18 07:38 [place] # (Auto) 0.6 K/uL (0.0-0.8) 09/27/18 07:38 Eos # (Auto) 0.2 K/uL (0.0-0.7) 09/27/18 07:38 Baso # (Auto) 0.0 K/uL (0.0-0.2) 09/27/18 07:38 PT 11.8 SECONDS (9.7-12.2) 09/26/18 22:27 INR 1.1 09/26/18 22:27 APTT 35 SECONDS (21-34) H 09/26/18 22:27 Sodium 138 mmol/L (132-148) 09/27/18 07:38 Potassium 4.3 mmol/L (3.6-5.2) 09/27/18 07:38 Chloride 104 mmol/L (98-107) 09/27/18 07:38 Carbon Dioxide 27 mmol/L (22-30) 09/27/18 07:38 Anion Gap 12 (10-20) 09/27/18 07:38 BUN 21 mg/dL (9-20) H 09/27/18 07:38 Creatinine 0.8 mg/dL (0.8-1.5) 09/27/18 07:38 Est GFR ( Amer) > 60 09/27/18 07:38 Est GFR (Non-Af Amer) > 60 09/27/18 07:38 Random Glucose 105 mg/dL (75-110) 09/27/18 07:38 Calcium 9.2 mg/dl (8.6-10.4) 09/27/18 07:38 Phosphorus 3.4 mg/dL (2.5-4.5) 09/27/18 07:38 Magnesium 1.9 mg/dL (1.6-2.3) 09/27/18 07:38 Total Bilirubin 0.4 mg/dL (0.2-1.3) 09/27/18 07:38 AST 42 U/L (17-59) 09/27/18 07:38 ALT 23 U/L (21-72) 09/27/18 07:38 Alkaline Phosphatase 97 U/L (38-126) 09/27/18 07:38 Total Creatine Kinase 198 U/L (55-170) H 09/27/18 07:38 CK-MB (Mass) 3.13 ng/mL (0.0-3.38) 09/27/18 07:38 Troponin I < 0.0120 ng/mL (0.00-0.120) 09/27/18 07:38 NT-Pro-B Natriuret Pep 147 pg/mL (0-450) 09/26/18 22:27 Total Protein 6.9 g/dL (6.3-8.3) 09/27/18 07:38 Albumin 4.2 g/dL (3.5-5.0) 09/27/18 07:38 Globulin 2.6 gm/dL (2.2-3.9) 09/27/18 07:38 Albumin/Globulin Ratio 1.6 (1.0-2.1) 09/27/18 07:38 Urine Color Yellow (YELLOW) 09/26/18 23:09 Urine Clarity Clear (Clear) 09/26/18 23:09 Urine pH 6.0 (5.0-8.0) 09/26/18 23:09 Ur Specific [place] 1.020 (1.003-1.030) 09/26/18 23:09 Urine Protein Negative mg/dL (NEGATIVE) 09/26/18 23:09 Urine Glucose (UA) Normal mg/dL (Normal) 09/26/18 23:09 Urine Ketones Negative mg/dL (NEGATIVE) 09/26/18 23:09 Urine Blood Negative (NEGATIVE) 09/26/18 23:09 Urine Nitrate Negative (NEGATIVE) 09/26/18 23:09 Urine Bilirubin Negative (NEGATIVE) 09/26/18 23:09 Urine Urobilinogen Normal mg/dL (0.2-1.0) 09/26/18 23:09 Ur Leukocyte Esterase Neg [place]/uL (Negative) 09/26/18 23:09 Urine WBC (Auto) < 1 /hpf (0-5) 09/26/18 23:09 Urine RBC (Auto) 2 /hpf (0-3) 09/26/18 23:09 Ur Squamous Epith Cells < 1 /hpf (0-5) 09/26/18 23:09 Urine Opiates Screen Negative (NEGATIVE) 09/26/18 23:09 Urine Methadone Screen Negative (NEGATIVE) 09/26/18 23:09 Ur Barbiturates Screen Negative (NEGATIVE) 09/26/18 23:09 Ur Phencyclidine Scrn Negative (NEGATIVE) 09/26/18 23:09 Ur Amphetamines Screen Negative (NEGATIVE) 09/26/18 23:09 U Benzodiazepines Scrn Negative (NEGATIVE) 09/26/18 23:09 U Oth Cocaine Metabols Negative (NEGATIVE) 09/26/18 23:09 U Cannabinoids Screen Negative (NEGATIVE) 09/26/18 23:09 - Hospital Course Hospital Course: On admission: 38 M w/ PMhx of HTN and HLD presents to ED for 1 day worsening L sided head pain radiating to left arm. 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 Each episode lasted approximately 10 minutes and self resolved. During episodes, patient states he just had pain in left arm, no numbness/ tingling reported. Patient states each time of the pain he was working. Patient reports returning to work for the first time in 3 months earlier this week. Patient denies headaches, chest pain, SOB, cough, abdominal pain, nausea, vomiting, dysuria, hematuria. Patient denies recent travel, illness/sick contacts. Hospital course: EKG showed NSR a 62, no acute STTW changes. Troponin x2 were negative. BNP was normal. CXR showed no active cardiopulmonary disease. BP was well controlled during hospitalization. Home medications were resumed. It was determined that pt's chest and neck pain were due noncardiac and due to cervical radiculopathy secondary to overuse. It was relieved with RICE. Pt instructed to follow up with his PMD for management of chronic medical problems within 2 weeks of discharge from the hospital. On discharge interview, pt reports resolution of symptoms. Denies fever, chills, chest pain, sob, palpitations, abdominal pain, n/v/d, headache, dizziness, lightheadedness, numbness and tingling. This is a summary of the hospital course, please see EMR for full details. Discharge Exam - Head Exam Head Exam: ATRAUMATIC, NORMAL INSPECTION, NORMOCEPHALIC - Eye Exam Eye Exam: EOMI, Normal appearance - ENT Exam ENT Exam: Mucous Membranes Moist - Neck Exam Neck exam: Tenderness (bilateral trapezius and paracervical muscle hypertonicity and tenderness to palpation, left greater than right) - Respiratory Exam Respiratory Exam: Clear to PA & Lateral - Cardiovascular Exam Cardiovascular Exam: REGULAR RHYTHM, +S1, +S2. absent: Tachycardia, Diastolic murmur, Systolic Murmur - GI/Abdominal Exam GI & Abdominal Exam: Normal Bowel Sounds, Soft. absent: Tenderness - Extremities Exam Extremities exam: normal capillary refill, normal inspection, pedal pulses present Additional comments: No pedal edema, no calf tenderness. - Back Exam Back exam: NORMAL INSPECTION. absent: CVA tenderness (L), CVA tenderness (R) - Neurological Exam Neurological exam: Alert, Normal Gait, Oriented x3 - Psychiatric Exam Psychiatric exam: Normal Affect, Normal Mood - Skin Skin Exam: Normal Color, Warm Discharge Plan - Follow Up Plan Condition: GOOD Disposition: HOME/ ROUTINE Instructions: Heart Healthy Diet, Chest Pain (DC) Additional Instructions: Pt is medically stable for discharge home as per Dr. Howard. Please continue taking your prior home medications as previously prescribed by your PMD. Please follow up with your PMD within 2 weeks of discharge. Should your symptoms worsen, please go to the nearest Emergency Department for further evaluation. Instructions explained to the pt, who understands and agrees with discharge plan. Referrals: Zhang Li MD [Staff Provider] -
[2018-09-27 11:59] VITALS: BP 111/73; PULSE 60
[2018-09-30] MEDS ORDERED: Pneumococcal 23-Valent Vaccine IM ONE (10:00)
== END 2018-09-27 12:53 | disposition home or self-care (01) ==
LOC: C.ER 21:34 → C.5S 23:56 → C.6T 09-27 01:06
PROVIDERS: ADMIT Internal Medicine; ATTEND Internal Medicine
DX: M54.2 Cervicalgia (principal); I10 Essential (primary) hypertension; N40.0 Benign prostatic hyperplasia without lower urinary tract symptoms; E78.5 Hyperlipidemia, unspecified
CPT/HCPCS: 36415; 71045; 80053; 80324; 80345; 80346; 80349; 80353; 80358; 80361; 81001; 82550; 82553; 83735; 83880; 83992; 84100; 84484; 85025; 85610; 85730; 96372; 99285; G0378; J1644

== ENCOUNTER 2018-11-28 00:29 | Emergency (ER) | payer OTHER ==
[2018-11-28 00:30] VITALS: BMI 50.0
[2018-11-28 01:31] VITALS: BP 116/74; PULSE 76; RESP 20; TEMP 98; O2SAT 98
[2018-11-28] MEDS ORDERED: Naproxen 550 mg Tab PO STA (01:40)
[2018-11-28] MEDS ORDERED: Naproxen 550 mg Tab PO ONE (01:46)
--- NOTE | 2018-11-28 01:50 | C.PDOC ---
History Of Present Illness 38 year old male presents with right shoulder pain for the past 3 days that radiates to the right neck area. Patient states the pain is worse with movement. He admits to doing heavy lifting at work. He has not taken anything for the pain. Denies trauma, weakness, or numbness. Time Seen by Provider: 11/28/18 01:31 Chief Complaint (Nursing): Upper Extremity Problem/Injury History Per: Patient History/Exam Limitations: no limitations Onset/Duration Of Symptoms: Days (3) Current Symptoms Are (Timing): Still Present Exacerbating Factor(s): Movement Recent travel outside of the [place]: No Past Medical History Reviewed: Historical Data, Nursing Documentation, Vital Signs Vital Signs: Last Vital Signs Temp 98 F 11/28/18 01:27 Pulse 76 11/28/18 01:27 Resp 20 11/28/18 01:27 BP 116/74 11/28/18 01:27 Pulse Ox 98 11/28/18 01:27 Primary Care Provider: Non [facility] Provider, - Medical History PMH: Anxiety, Back Problems, Bipolar Disorder, HTN, Hypercholesterolemia Family History: States: Diabetes (Father) Denies: [place] (no family history of sudden or early cardiac disease) - Social History Hx Tobacco Use: No Hx Alcohol Use: No Hx Substance Use: No - Immunization History Hx Tetanus Toxoid Vaccination: Yes Hx Influenza Vaccination: Yes (05/2016) Hx Pneumococcal Vaccination: No Review Of Systems Musculoskeletal: Positive for: Shoulder Pain (Right) Neurological: Negative for: Weakness, Numbness Physical Exam - Physical Exam Appears: Non-toxic Skin: Normal Color, Warm Head: Atraumatic, Normacephalic Eye(s): bilateral: Normal Inspection Oral Mucosa: Moist Neck: Normal ROM, No Midline Cervical Tenderness, Paracervical Tenderness (Right), Supple Extremity: Other (Tenderness on palpation of right anterior shoulder. ROM of right upper extremities is full with no limitations.) Pulses: Left Radial: Normal, Right Radial: Normal Neurological/Psych: Oriented x3, Normal Speech, Normal Motor, Normal Sensation Gait: Steady ED Course And Treatment O2 Sat by Pulse Oximetry: 98 (Room air) Pulse Ox Interpretation: Normal Progress Note: Naproxen and flexeril administered. Patient is resting comfortably in no acute distress, vitals are stable, reports improvement of pain, will discharge home with Rx and instructions to follow up with PMD. Disposition Counseled Patient/Family Regarding: Diagnosis, Need For Followup, Rx Given - Disposition Referrals: [facility] [Outside] Disposition: HOME/ ROUTINE Disposition Time: 01:50 Condition: STABLE Additional Instructions: TAKE MEDICATIONS DIRECTED FOLLOW UP WITH YOUR DOCTOR OR IN CLINIC RETURN TO ER IF WORSE Prescriptions: Cyclobenzaprine [Cyclobenzaprine HCl] 10 mg PO HS #7 tab Naproxen [Naprosyn] 1 tab PO BID PRN #25 tab PRN Reason: Pain Instructions: Shoulder Pain (DC) Forms: [email or web address] (Frisian) - Clinical Impression Clinical Impression: Shoulder pain, right - 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 - Scribe Statement The provider has reviewed the documentation as recorded by the Scribmacy [place] All medical record entries made by the Solis[facility] were at my direction and personally dictated by me. I have reviewed the chart and agree that the record accurately reflects my personal performance of the history, physical exam, medical decision making, and the department course for this patient. I have also personally directed, reviewed, and agree with the discharge instructions and disposition.
== END 2018-11-28 02:18 | disposition home or self-care (01) ==
LOC: C.ER 00:29
DX: M25.511 Pain in right shoulder (principal)